=== PATIENT | female | born 2000 | race Caucasian/White ===

== ENCOUNTER 2021-04-23 21:05 | Emergency (ER) | payer OTHER, SELFPAY ==
[2021-04-23 21:14] VITALS: BP 104/63; PULSE 92; RESP 14; TEMP 36.6; O2SAT 100
[2021-04-23 21:23] VITALS: BP 104/63; PULSE 80; RESP 18; TEMP 36.6; O2SAT 100
--- NOTE | 2021-04-23 22:52 | ED.GENADULT ---
HPI - General Adult General Chief complaint: Wound/Laceration Stated complaint: spider bite infected Time Seen by Provider: 04/23/21 22:39 History of Present Illness HPI narrative: Patient is a 19-year-old female presents emergency department with chief complaint of wound on the right leg. Patient states that she was seen and started on antibiotics she had a attempted I&D done by one of her friends who is a physician he got a small amount of pus out of the area and she has been on Augmentin since Wednesday. The patient states that the area today after she had been on her feet throughout the day was darker color and she was concerned that it may have been swollen but more swollen. Patient states it is not currently draining purulent material at this time states she is not had any fevers or chills reports that there is no streaking of redness up her leg. Related Data Allergies Allergy/AdvReac Type Severity Reaction Status Date / Time No Known Allergies Allergy Unverified 06/29/16 13:37 Review of Systems Review of Systems: Narrative: A 10 system review of systems was completed on the patient and is negative except for what is stated in the HPI. Nursing and ancillary documentation was reviewed. [facility] Social History Social History Gender identity (if verbalized by the patient): Female Comments Reports occasional marijuana use Exam Narrative: Exam Narrative: GENERAL: Well-appearing, well-nourished, and in no acute distress. HEAD: Normocephalic, atraumatic. EYES: PERRLA and EOMI. ENT: Nares clear, no rhinorrhea or epistaxis. Mucous membranes moist. NECK: Supple. CHEST: Clear to auscultation. No respiratory distress. HEART: Regular rate and rhythm. No murmur heard. Normal peripheral pulses. ABDOMEN: Soft, nontender, nondistended, normal active bowel sounds. EXTREMITIES: Normal range of motion. No edema. SKIN: Warm, dry, no rash. There is an area of erythema just distal to the right knee. There is no fluctuance there is an area of induration NEURO: No focal deficits. Alert and oriented x3. PSYCH: Normal mood and affect. Course Course Emergency Course: Patient has been on a day and a half of Augmentin. Coverage for MRSA will be added and the patient will be continued on antibiotics at this time there is no appreciable abscess that needs to be drained patient follow-up with her primary care physician in the next 2 to 3 days for recheck. Vital Signs Vital signs: Vital Signs Temperature 36.6 C 04/23/21 21:14 Pulse Rate 92 04/23/21 21:14 Respiratory Rate 14 04/23/21 21:14 Blood Pressure 104/63 04/23/21 21:14 Pulse Oximetry 100 04/23/21 21:14 Temperature 36.6 C 04/23/21 21:23 Pulse Rate 80 04/23/21 21:23 Respiratory Rate 18 04/23/21 21:23 Blood Pressure 104/63 04/23/21 21:23 Pulse Oximetry 100 04/23/21 21:23 Medical Decision Making Vital Signs Vital Signs: Vital Signs Temperature 36.6 C 04/23/21 21:14 Pulse Rate 92 04/23/21 21:14 Respiratory Rate 14 04/23/21 21:14 Blood Pressure 104/63 04/23/21 21:14 Pulse Oximetry 100 04/23/21 21:14 Temperature 36.6 C 04/23/21 21:23 Pulse Rate 80 04/23/21 21:23 Respiratory Rate 18 04/23/21 21:23 Blood Pressure 104/63 04/23/21 21:23 Pulse Oximetry 100 04/23/21 21:23 Discharge Plan Discharge Clinical Impression: Cellulitis of leg, right Patient Disposition: Home, Self-Care Condition: Stable Instructions: Antibiotic Form, Cellulitis (ED) Prescriptions: New sulfamethoxazole-trimethoprim [Bactrim DS] 800-160 mg tablet 1 tablet PO Q12H 10 Days Qty: 20 RF: 0 Follow-up/Referrals: PHYSICIAN,PRINT OPERATOR [Primary Care Provider] - Marvin Peters MD [Physician] - Time of Disposition: 22:56
== END 2021-04-23 23:06 | disposition home or self-care (01) ==
PROVIDERS: Emergency Provider Emergency Medicine
DX: L03.115 Cellulitis of right lower limb (principal)
CPT/HCPCS: 99283; A9270